=== PATIENT | female | born 1970 | race Caucasian/White ===

== ENCOUNTER → 2019-12-16 | Outpatient (CLI) | payer SELFPAY ==
--- NOTE | 2019-12-16 15:45 | RADIOLOGY REPORT (SQ) ---
EXAM DESCRIPTION: VENOUS UNILATERAL LOWER IMAGES COMPLETED DATE/TIME: 12/16/2019 3:32 pm REASON FOR STUDY: RLE SWELLING R22.41 LOCALIZED SWELLING, MASS AND LUMP, RIGHT LOWER LIMB COMPARISON: None. TECHNIQUE: Dynamic and static teran scale and color images acquired of the right leg venous system. S elected spectral images acquired with additional compression and augmentation maneuvers. The contrala teral common femoral vein and saphenofemoral junction were also imaged. Images stored on PACS. LIMITATIONS: None. FINDINGS: COMMON FEMORAL: Normal phasicity, compression and augmentation. No visualized echogenic ma terial on teran scale. No defects on color images. FEMORAL: Normal compression and augmentation. No visualized echogenic material on teran scale. No defe cts on color images. POPLITEAL: Normal compression, augmentation. No visualized echogenic material on teran scale. No defec ts on color images. CALF VESSELS: Normal compression, augmentation. No visualized echogenic material on teran scale. No de fects on color images. GSV and SSV: Normal compression, augmentation. No visualized echogenic material on teran scale. No def ects on color images. ANY DEEP VENOUS INSUFFICIENCY: Not evaluated. ANY EVIDENCE OF POPLITEAL CYST: No. OTHER: No other significant finding. CONTRALATERAL COMMON FEMORAL VEIN: Normal phasicity, compression and augmentation. No visualized echogenic material on teran scale. No de fects on color images. IMPRESSION: 1. NO EVIDENCE OF DVT OR SVT IN THE RIGHT LEG. COMMENT: 1. The results of this examination were discussed with the patient's provider on 12/16/2019 at 15:30 hours. TECHNICAL DOCUMENTATION: JOB ID: [id number] 2010 [employer] All Rights Reserved Reading location - IP/workstation name: [email or web address]
== END ==
LOC: SP 14:52
PROVIDERS: ATTEND Internal Medicine
DX: R22.41 Localized swelling, mass and lump, right lower limb (principal)
CPT/HCPCS: 93971

== ENCOUNTER 2019-12-22 19:12 | Emergency (ER) | payer SELFPAY ==
--- NOTE | 2019-12-22 19:43 | ER Document Report ---
ED General - General Stated Complaint: SYNCOPE EPISODE Time Seen by Provider: 12/22/19 19:33 Primary Care Provider: JUAN LEIGH MD [Primary Care Provider] - Follow up as needed TRAVEL OUTSIDE OF THE [place] IN LAST 30 DAYS: No - HPI Patient complains to provider of: syncope Notes: 49 y/o presenting to ED for evaluation of syncopal episode that occurred today while drinking heavily she reports sudden onset chest pain and abdomen pain followed by loss of consciousness when she fell to ground, she struck back of her head she was given 5 mg of versed by ems as she became combative with them during transport she denies neck pain she continues to endorse chest and abdomen pain now as well as headache she is a poor historian secondary to her etoh - Related Data Allergies/Adverse Reactions: diphenhydramine HCl [From Benadryl] Allergy (Severe, Verified 05/28/15 09:24) Tachycardia Penicillins Allergy (Severe, Verified 05/28/15 09:24) Anaphylaxis streptokinase [Streptokinase] Allergy (Severe, Verified 05/28/15 09:24) Anaphylaxis BANDAIDS Allergy (Intermediate, Uncoded 08/02/15 10:08) RASH, SKIN IRRITATION Past Medical History - Social History Smoking Status: Current Every Day Smoker Family History: Reviewed & Not Pertinent - Past Medical History Cardiac Medical History: Denies: Hx Coronary Artery Disease, Hx Heart Attack, Hx Hypertension Pulmonary Medical History: Denies: Hx Asthma, Hx Bronchitis, Hx COPD, Hx Pneumonia Neurological Medical History: Denies: Hx Cerebrovascular Accident, Hx Seizures Musculoskeletal Medical History: Denies Hx Arthritis - Immunizations Hx Diphtheria, Pertussis, Tetanus Vaccination: Yes Review of Systems - Review of Systems Constitutional: No symptoms reported EENT: No symptoms reported Cardiovascular: Chest pain, Syncope Respiratory: No symptoms reported Gastrointestinal: Abdominal pain Genitourinary: No symptoms reported Female Genitourinary: No symptoms reported Musculoskeletal: No symptoms reported Skin: No symptoms reported Hematologic/Lymphatic: No symptoms reported Neurological/Psychological: No symptoms reported Physical Exam - Vital signs Vitals: Pulse Ox 94 12/22/19 19:13 Interpretation: Normal - General General appearance: Appears well, Alert - HEENT Head: Normocephalic, Atraumatic Eyes: Normal Pupils: PERRL - Respiratory Respiratory status: No respiratory distress Chest status: Nontender Breath sounds: Normal Chest palpation: Normal - Cardiovascular Rhythm: Regular Heart sounds: Normal auscultation Murmur: No - Abdominal Inspection: Normal Distension: No distension Bowel sounds: Normal Tenderness: Nontender Organomegaly: No organomegaly - Back Back: Normal, Nontender - Extremities General upper extremity: Normal inspection, Nontender, Normal color, Normal ROM, Normal temperature General lower extremity: Normal inspection, Nontender, Normal color, Normal ROM, Normal temperature, Normal weight bearing. No: Shamika's sign - Neurological Neuro grossly intact: Yes Cognition: Normal Orientation: AAOx4 [place] Coma Scale Eye Opening: Spontaneous Sahil Coma Scale Verbal: Oriented Sahil Coma Scale Motor: Obeys Commands Kal[place] Coma Scale Total: 15 Speech: Normal Motor strength normal: LUE, RUE, LLE, RLE Sensory: Normal - Psychological Associated symptoms: Normal affect, Normal mood - Skin Skin Temperature: Warm Skin Moisture: Dry Skin Color: Normal Course - Re-evaluation Re-evalutation: 12/22/19 19:42 extensive workup ordered given trauma, syncope and etoh on board which limits history 12/22/19 21:31 extensive workup negative for acute findings and patient subsequently eloped with significant other prior to receiving results - Vital Signs Vital signs: Temp Pulse Resp BP Pulse Ox 97.8 F 94 12/22/19 19:33 12/22/19 19:13 - Laboratory Result Diagrams: 12/22/19 19:35 12/22/19 19:35 Laboratory results interpreted by me: 12/22/19 12/22/19 19:35 19:35 MCV 100 H MCH 34.0 H Potassium 3.5 L Chloride 112 H BUN 6 L Glucose 120 H - Diagnostic Test Radiology reviewed: Image reviewed, Reports reviewed - EKG Interpretation by Me Additional EKG results interpreted by me: 12/22/19 20:44 sinus tachycardia, 102, no ST segment changes. normal T waves Discharge - Discharge Clinical Impression: Syncope Qualifiers: Syncope type: unspecified Qualified Code(s): R55 - Syncope and collapse Alcohol intoxication Qualifiers: Complication of substance-induced condition: with unspecified complication Qu alified Code(s): F10.929 - Alcohol use, unspecified with intoxication, unspecified Chest pain Qualifiers: Chest pain type: unspecified Qualified Code(s): R07.9 - Chest pain, unspecified Abdominal pain Qualifiers: Abdominal location: unspecified location Qualified Code(s): R10.9 - Unspecified abdominal pain Head injury Qualifiers: Encounter type: initial encounter Qualified Code(s): S09.90XA - Unspecified injury of head, initial encounter Condition: Stable Disposition: ELOPED Referrals: JUAN LEIGH MD [Primary Care Provider] - Follow up as needed
[2019-12-22 19:59] LABS: ABSOLUTE EOSINOPHILS # (AUTO) 0.2 10^3/uL (0.0-0.6); ABSOLUTE LYMPHOCYTES (AUTO) 2.5 10^3/uL (0.5-4.7); ABSOLUTE MONOCYTES (AUTO) 0.6 10^3/uL (0.1-1.4); ABSOLUTE NEUT (AUTO) 4.3 10^3/uL (1.7-8.2); BASOPHILS % (AUTO) 0.5 % (0-2); EOSINOPHILS % (AUTO) 3.1 % (0-6); HEMATOCRIT 42.1 % (36.0-47.0); HEMOGLOBIN 14.2 g/dL (12.0-15.5); LYMPHOCYTES % (AUTO) 32.3 % (13-45); MEAN CORPUSCULAR HGB CONC 33.9 g/dL (32.0-36.0); MEAN CORPUSCULAR VOLUME 100 fl (80-97); MONOCYTES % (AUTO) 7.7 % (3-13); PLATELET COUNT 223 10^3/uL (150-450); RED BLOOD COUNT 4.19 10^6/uL (3.72-5.28); RED CELL DISTRIBUTION WIDTH 13.9 % (11.5-14.0); SEGMENTED NEUTROPHILS % (AUTO) 56.4 % (42-78); TOTAL CELLS COUNTED % (AUTO) 100 %; WHITE BLOOD COUNT 7.6 10^3/uL (4.0-10.5)
[2019-12-22 20:17] LABS: ALCOHOL 269 mg/dL (NONE DETECTED); ALKALINE PHOSPHATASE 80 U/L (38-126); ANION GAP 9 (5-19); ASPARTATE AMINO TRANSFERASE 22 U/L (14-36); BILIRUBIN,TOTAL 0.3 mg/dL (0.2-1.3); BLOOD UREA NITROGEN 6 mg/dL (7-20); CALCIUM 9.5 mg/dL (8.4-10.2); CARBON DIOXIDE 24 mmol/L (22-30); CHLORIDE 112 mmol/L (98-107); GLUCOSE 120 mg/dL (75-110); POTASSIUM 3.5 mmol/L (3.6-5.0); TOTAL PROTEIN 6.7 g/dL (6.3-8.2)
--- NOTE | 2019-12-22 20:18 | RADIOLOGY REPORT (SQ) ---
3 VIEWS OF LEFT ANKLE HISTORY: Ankle pain post trauma. COMPARISON: None. FINDINGS: The ankle mortise is preserved on these nonstress views. No acute fracture is identified. The surrounding soft tissues are swollen. No foreign bodies. There has been prior fixation of the calcaneus with hardware intact. IMPRESSION: Ankle soft tissue swelling, without acute fracture seen.
[2019-12-22 21:02] LABS: APPEARANCE,URINE SLIGHTLY-CLOUDY; BILIRUBIN,URINE NEGATIVE (NEGATIVE); COLOR,URINE STRAW; GLUCOSE, URINE NEGATIVE (NEGATIVE); KETONES,URINE NEGATIVE (NEGATIVE); LEUKOCYTE ESTERASE,URINE NEGATIVE (NEGATIVE); NITRITE,URINE NEGATIVE (NEGATIVE); PROTEIN,URINE NEGATIVE (NEGATIVE); URINE SPECIFIC GRAVITY 1.004; UROBILINOGEN,URINE NEGATIVE mg/dL (<2.0)
--- NOTE | 2019-12-22 21:18 | RADIOLOGY REPORT (SQ) ---
CT CERVICAL SPINE WITHOUT IV CONTRAST HISTORY: Neck pain. COMPARISON: None. TECHNIQUE: CT scan of the cervical spine was performed without IV contrast. This exam was performed according to our departmental dose-optimization program, which includes automated exposure control, adjustment of the mA and/or kV according to patient size and/or use of iterative reconstruction technique. FINDINGS: No acute cervical fracture or prevertebral soft tissue swelling is seen. There is straightening of the normal cervical lordosis, which may be due to cervical collar, muscle spasm, or patient positioning. The facet joints and disc spaces are preserved. No advanced canal stenosis is identified. IMPRESSION: No acute fracture or subluxation of the cervical spine.
--- NOTE | 2019-12-22 21:18 | RADIOLOGY REPORT (SQ) ---
EXAM DESCRIPTION: [facility]: CT HEAD WITHOUT IV CONTRAST CLINICAL HISTORY: 49 years Female; head injury; TECHNIQUE: Noncontrast CT head. All CT scans at this facility use dose modulation, iterative reconstruction, and/or weight based dosing when appropriate to reduce radiation dose to as low as reasonably achievable. COMPARISON: 06/17/2013 FINDINGS: Mayo matter, white matter, ventricles, and cisterns are within normal limits. No acute hemorrhage or mass effect. Visualized portions of paranasal sinuses and mastoids are clear. Visualized portions of the calvarium are within normal limits. IMPRESSION: 1. No acute intracranial findings.
--- NOTE | 2019-12-22 21:22 | RADIOLOGY REPORT (SQ) ---
CT OF THE CHEST, ABDOMEN, AND PELVIS HISTORY: Shortness of breath. Abdominal pain. COMPARISON: None. TECHNIQUE: 1. CT angiogram of the chest was performed with IV contrast. 3-D MIPS sagittal and coronal reconstructions were obtained in postprocessing. 2. CT scan of the abdomen and pelvis was performed with IV contrast. This exam was performed according to our departmental dose-optimization program, which includes automated exposure control, adjustment of the mA and/or kV according to patient size and/or use of iterative reconstruction technique. FINDINGS: There has been a prior right upper lobectomy with chronic post surgical changes. No pleural effusions or pneumothorax. The heart size is normal without pericardial effusion. No mediastinal or hilar adenopathy. There are chronic fractures of multiple right upper ribs from prior surgery. Mild bilateral paraseptal emphysema. The liver, spleen, pancreas, gallbladder, adrenal glands, and kidneys are unremarkable. There has been a prior hysterectomy. The urinary bladder is moderately distended measuring up to 14 cm. No bowel obstruction or inflammation is seen. Normal appendix. No intraperitoneal free fluid or free air is seen. There is no aortic aneurysm or dissection. No filling defects are seen in the main pulmonary arteries or the segmental branches. No acute bony findings are seen. No abnormal body wall hernia is seen. IMPRESSION: 1. No acute pulmonary embolism. 2. 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 3. No acute abdominal or pelvic findings.
--- NOTE | 2019-12-22 21:30 | EKG REPORT ---
SEVERITY:- OTHERWISE NORMAL ECG - SINUS TACHYCARDIA : Confirmed by: Emma Quinones 22-Dec-2019 21:29:33
== END 2019-12-22 21:34 | disposition left against medical advice (07) ==
LOC: ER 19:12
DX: R55 Syncope and collapse (principal); S09.90XA Unspecified injury of head, initial encounter; W19.XXXA Unspecified fall, initial encounter; Y92.59 Other trade areas as the place of occurrence of the external cause; R07.9 Chest pain, unspecified; R10.9 Unspecified abdominal pain; R00.0 Tachycardia, unspecified; F10.129 Alcohol abuse with intoxication, unspecified; F17.200 Nicotine dependence, unspecified, uncomplicated; Z88.8 Allergy status to other drugs, medicaments and biological substances; Z87.892 Personal history of anaphylaxis; Z88.0 Allergy status to penicillin
CPT/HCPCS: 36415; 70450; 71275; 72125; 74177; 80053; 80307; 81001; 83690; 84484; 84703; 85025; 93005; 93010; 99281